=== PATIENT | female | born 1965 | race African-American/Black ===

== ENCOUNTER 2016-08-05 09:37 | Inpatient (IN) | payer MEDICAID, OTHER ==
[~2016-08-05] VITALS: Ht 165.1 cm; Wt 108.9 kg
[2016-08-05] MEDS: IPRATROPIUM/ALBUTEROL 0.5-3(2.5)MG/3ML NEB INH SCH ×2 (00:29→21:09)
[~2016-08-05 09:37] MED LIST: GLIP10TA10 PO; METF500T4 PO; METO-296 PO; PANT40TA4 PO; SUCR1ORA PO
[2016-08-05] MEDS ORDERED: METHYLPREDNISOLONE SOD SUCC 125 MG/2 ML VIAL IV STA (10:00)
[2016-08-05] MEDS ORDERED: ALBUTEROL (0.083%) 2.5MG/3ML NEB HHN STA (10:00)
[2016-08-05] MEDS ORDERED: IPRATROPIUM BROMIDE (0.02%) 0.5MG/2.5ML NEB HHN STA (10:00)
[2016-08-05 10:26] LABS: BASOPHILS % 0.8 % (0.0-2.0); HEMATOCRIT. 41.8 % (36.0-48.0); HEMOGLOBIN. 13.8 g/dL (12.0-16.0); LYMPHOCYTES % 28.3 % (20.0-50.0); MEAN CORPUSCULAR HGB CONC 32.9 g/dL (31.0-37.0); MEAN CORPUSCULAR VOLUME 84.9 fL (81.0-99.0); MEAN PLATELET VOLUME 9.2 fl (7.4-10.4); MONOCYTES % 10.6 % (2.0-8.0); NEUTROPHILS % 57.3 % (40.0-76.0); PLATELET 184 x1000/uL (130-400); RED BLOOD CELL COUNT 4.92 mill/uL (4.2-5.4); RED CELL DISTRIBUTION WIDTH 13.5 % (11.6-14.6)
[2016-08-05 10:28] LABS: CLARITY URINE CLEAR (CLEAR); COLOR URINE YELLOW (YELLOW); GLUCOSE URINE 3+ (NEGATIVE); KETONES URINE NEGATIVE (NEGATIVE); LEUKOCYTE ESTERASE URINE NEGATIVE (NEGATIVE); NITRITE URINE NEGATIVE (NEGATIVE); OCCULT BLOOD URINE NEGATIVE (NEGATIVE); PROTEIN URINE NEGATIVE (NEGATIVE); SPECIFIC GRAVITY URINE 1.025 (1.005-1.030); UROBILINOGEN URINE 0.2 E.U./dL (0.2-1.0)
[2016-08-05 10:35] LABS: CHLORIDE 100 mEq/L (98-107); INDEX HEMOLYSI 1 (1-3); INDEX ICTERIC 1 (1-4); INDEX LIPEMIC 1 (1-3); PROTHROMBIN TIME 10.1 sec
[2016-08-05 10:44] LABS: *AMPHETAMINES SCREEN URINE NEGATIVE (NEGATIVE); *BARBITURATES SCREEN URINE NEGATIVE (NEGATIVE); *BENZODIAZEPINES SCREEN URINE NEGATIVE (NEGATIVE); *COCAINE SCREEN URINE NEGATIVE (NEGATIVE); CANNABINOID URINE SCREEN NEGATIVE (NEGATIVE); ECSTASY MDMA SCREEN URINE NEGATIVE (NEGATIVE); METHADONE URINE SCREEN NEGATIVE (NEGATIVE); OPIATES URINE SCREEN NEGATIVE (NEGATIVE); PHENCYCLIDINE URINE SCREEN NEGATIVE (NEGATIVE)
[2016-08-05 10:44] LABS: ALANINE AMINOTRANSFERASE 18 IU/L (13-61); ALBUMIN 3.1 g/dL (3.4-5.0); ANION GAP 8; CARBON DIOXIDE 36 mEq/L (21-32); LIPASE 224 IU/L (73-393); NT PRO B-TYPE NATRIURETIC PEP 71 pg/mL (5-125); TROPONIN I < 0.02 ng/mL (0.00-0.04); UREA NITROGEN BLOOD 10 mg/dL (7-21); eGFR > 60 mL/min (>60)
[2016-08-05] MEDS ORDERED: TRAMADOL 50MG TABLET PO ONE (10:45)
[2016-08-05 10:47] LABS: SQUAMOUS EPITHELIAL CELL URINE 1+ /lpf (RARE/1+); YEAST URINE 1+
[2016-08-05 10:48] LABS: BACTERIA URINE 1+
[2016-08-05 10:49] LABS: RBC URINE 0-2 /hpf (0-2); WBC URINE 0-2 /hpf (0-2)
[2016-08-05] MEDS ORDERED: INSULIN REGULAR (HUMULIN R) 300UNITS/3ML IV ONE (11:00)
[2016-08-05] MEDS ORDERED: LEVOFLOXACIN 500MG PREMIX 100 ML IV ONE (11:00)
[2016-08-05 13:55] VITALS: BP 124/79
[2016-08-05 14:00] VITALS: BP 124/79
[2016-08-05] MEDS ORDERED: MAGNESIUM/ALUMINUM HYDROXIDE/SIMETHICONE 30ML UDC PO PRN (15:15)
[2016-08-05] MEDS ORDERED: DOCUSATE SODIUM 100MG CAPSULE PO PRN (15:15)
[2016-08-05] MEDS ORDERED: IPRATROPIUM/ALBUTEROL 0.5-3(2.5)MG/3ML NEB INH PRN (15:15)
[2016-08-05] MEDS ORDERED: CLONIDINE 0.1MG TABLET PO PRN (15:15)
[2016-08-05] MEDS ORDERED: ACETAMINOPHEN 325MG TABLET PO PRN (15:15)
[2016-08-05] MEDS ORDERED: ONDANSETRON HCL 4MG/2ML VIAL IV PRN (15:15)
[2016-08-05] MEDS ORDERED: GUAIFENESIN 200MG/10ML SUGAR FREE UDC PO PRN (15:15)
[2016-08-05] MEDS ORDERED: DIPHENHYDRAMINE 50MG/ML VIAL IV PRN (15:15)
[2016-08-05] MEDS ORDERED: DEXTROSE 50% WATER 50ML SYRINGE IV PRN (15:45)
[2016-08-05 16:00] VITALS: BP 124/72
[2016-08-05] MEDS ORDERED: METHYLPREDNISOLONE SOD SUCC 125 MG/2 ML VIAL IV SCH (16:00)
[2016-08-05] MEDS: AMLODIPINE 10MG TABLET PO SCH (17:00)
[2016-08-05] MEDS: HYDROCODONE/ACETAMINOPHEN 5/325MG TABLET PO PRN (17:01)
[2016-08-05] MEDS: BLOOD SUGAR DIAGNOSTIC STRIP TEST SCH ×2 (17:38→22:42)
[2016-08-05] MEDS: INSULIN LISPRO 100 UNITS/ML SUBCUT SCH ×2 (17:50→22:52)
[2016-08-05 20:00] VITALS: BP 125/75
[2016-08-05] MEDS ORDERED: INSULIN LISPRO 100 UNITS/ML SUBCUT NR (20:00)
[2016-08-05 23:08] LABS: INDEX LIPEMIC 1 (1-3)
[2016-08-05] MEDS ORDERED: MEDICATION NOT ON FORMULARY EA XX SCH (23:15)
[2016-08-06] VITALS: BP 117/71
[2016-08-06] MEDS: INSULIN DETEMIR UD 100 UNITS/ML SYR SUBCUT SCH ×2 (00:05→09:25)
[2016-08-06] MEDS: IPRATROPIUM/ALBUTEROL 0.5-3(2.5)MG/3ML NEB INH SCH ×2 (00:40→07:54)
[2016-08-06] MEDS: HYDROCODONE/ACETAMINOPHEN 5/325MG TABLET PO PRN ×2 (01:05→09:13)
[2016-08-06 04:00] VITALS: BP 128/86
[2016-08-06 06:22] LABS: BASOPHILS % 0.2 % (0.0-2.0); HEMATOCRIT. 44.4 % (36.0-48.0); HEMOGLOBIN. 14.5 g/dL (12.0-16.0); LYMPHOCYTES % 9.3 % (20.0-50.0); MEAN CORPUSCULAR HGB CONC 32.6 g/dL (31.0-37.0); MEAN CORPUSCULAR VOLUME 85.9 fL (81.0-99.0); MEAN PLATELET VOLUME 9.8 fl (7.4-10.4); MONOCYTES % 2.6 % (2.0-8.0); NEUTROPHILS % 87.9 % (40.0-76.0); PLATELET 208 x1000/uL (130-400); RED BLOOD CELL COUNT 5.17 mill/uL (4.2-5.4); RED CELL DISTRIBUTION WIDTH 13.8 % (11.6-14.6); WHITE BLOOD COUNT 15.1 x1000/uL (4.5-11.0)
[2016-08-06 06:45] LABS: CHLORIDE 98 mEq/L (98-107); INDEX HEMOLYSI 1 (1-3); INDEX ICTERIC 1 (1-4); INDEX LIPEMIC 1 (1-3)
[2016-08-06 06:52] LABS: ALANINE AMINOTRANSFERASE 16 IU/L (13-61); ALBUMIN 3.3 g/dL (3.4-5.0); ANION GAP 15; CALCIUM 9.7 mg/dL (8.5-10.1); CARBON DIOXIDE 29 mEq/L (21-32); UREA NITROGEN BLOOD 17 mg/dL (7-21); eGFR > 60 mL/min (>60)
[2016-08-06] MEDS: BLOOD SUGAR DIAGNOSTIC STRIP TEST SCH (06:57)
[2016-08-06] MEDS: INSULIN LISPRO 100 UNITS/ML SUBCUT SCH (07:08)
[2016-08-06 08:00] VITALS: BP 114/77
[2016-08-06 09:00] LABS: INDEX LIPEMIC 1 (1-3)
[2016-08-06] MEDS ORDERED: ASPIRIN 81MG EC TABLET PO SCH (09:00)
[2016-08-06] MEDS ORDERED: METHYLPREDNISOLONE SOD SUCC 40 MG/ML VIAL IV SCH (09:00)
[2016-08-06] MEDS: AMLODIPINE 10MG TABLET PO SCH (09:13)
[2016-08-06 10:30] VITALS: BP 114/77
[2016-08-06] MEDS ORDERED: LEVOFLOXACIN 500MG PREMIX 100 ML IV SCH (11:00)
== END 2016-08-06 11:10 | disposition home or self-care (01) | DRG 141 ==
LOC: ER 10:23 → 6EST 10:51
PROVIDERS: ADMIT Hospitalist; ATTEND Hospitalist
DX: J45.901 Unspecified asthma with (acute) exacerbation (principal); E09.65 Drug or chemical induced diabetes mellitus with hyperglycemia; I10 Essential (primary) hypertension; T38.0X5A Adverse effect of glucocorticoids and synthetic analogues, initial encounter; R10.9 Unspecified abdominal pain; F17.200 Nicotine dependence, unspecified, uncomplicated; Y92.89 Other specified places as the place of occurrence of the external cause
CPT/HCPCS: 36415; 71010; 80053; 80305; 81001; 82947; 82962; 83605; 83690; 83880; 84484; 85025; 85610; 85730; 87040; 87086; 93005; 93970; 94640; 94664; 96365; 96366; 96375; 99291; J1815; J1956; J2920; J2930; J7611; J7620